=== PATIENT | male | born 1995 | race Two or more races ===

== ENCOUNTER 2017-06-21 17:38 | Emergency (ER) | payer BC, OTHER ==
[~2017-06-21] VITALS: Ht 154.9 cm; Wt 57.7 kg
[~2017-06-21 17:38] MED LIST: ACTIGALL PO; DAYTRANA1 EAC1 TD; KEFLEX250 MG/5 M PO; RAPAMUNE1 MG/1 ML PO
[2017-06-21 19:47] LABS: BILIRUBIN NEGATIVE; BLOOD LARGE; COLOR YELLOW ((YELLOW)); GLUCOSE (STRIP) 50; KETONES NEGATIVE; LEUKOCYTES NEGATIVE; NITRITE NEGATIVE; PROTEIN (STRIP) 30; SPECIFIC GRAVITY 1.008 (1.000-1.030); UROBILINOGEN 0.2 MG/DL (0.2-1.0)
[2017-06-21 19:51] LABS: APPEARANCE SL CLOUDY ((CLEAR))
[2017-06-21 19:56] LABS: BACTERIA 1+ /HPF; EPITHELIAL CELLS NONE SEEN /HPF; MUCUS NONE SEEN /LPF; RED BLOOD CELLS 15-20 /HPF (0-5); UCUL ADDED? YES
[2017-06-21 21:23] LABS: BASOPHIL (%) 0.3 % (0-1); EOSINOPHIL (%) 1.9 % (0-5); EOSINOPHIL COUNT 0.2 K/uL (0-0.3); HEMATOCRIT 47.4 % (38.0-50.0); HEMOGLOBIN 17.1 G/DL (12.5-16.6); IMMATURE GRANULOCYTE (%) 0.1 % (0.0-0.7); LYMPHOCYTE (%) 21.8 % (15-42); LYMPHOCYTE COUNT 2.1 K/uL (1.0-2.8); MCHC 36.1 G/DL (30.0-36.0); MCV 83.2 FL (86-99); MONOCYTE (%) 19.6 % (3-12); MONOCYTE COUNT 1.9 K/uL (0-0.8); NEUTROPHIL (%) 56.3 % (45-76); NEUTROPHIL COUNT 5.3 K/uL (1.8-6.4); PLATELET COUNT 141 K/uL (156-360); RBC DIS.WIDTH-CV 12.7 % (11.8-14.6); RBC DIS.WIDTH-SD 38.1 % (39-53); WHITE BLOOD COUNT 9.4 K/uL (4.1-10.2)
[2017-06-21 21:28] LABS: INTER. NORMALIZED RATIO 1.1
[2017-06-21 21:31] LABS: PTT 28.9 SEC (25-37)
[2017-06-21 21:45] LABS: ALBUMIN 4.3 G/DL (3.2-4.8); CHLORIDE 97 MEQ/L (99-109); POTASSIUM 3.4 MEQ/L (3.7-5.4); SODIUM 136 MEQ/L (136-147)
[2017-06-21 21:50] LABS: ALKALINE PHOSPHATASE 267 IU/L (3-129); ALT (GPT) 63 IU/L (3-49); AST (GOT) 42 IU/L (2-34); CREATININE 0.8 MG/DL (0.6-1.3); GFR ESTIMATE (CALCULATED) > 59 mL/min/ (58.99-99999); GLUCOSE 117 mg/dL (70-99); LIPASE 24 U/L (1.0-51.0); TOTAL PROTEIN 8.2 G/DL (6.4-8.3); UREA NITROGEN (BUN) 15 mg/dL (9-23)
[2017-06-22] MEDS ORDERED: CEFPODOXIME PR200 MG PO (00:16)
[2017-06-22 00:37] VITALS: BP 125/74
== END 2017-06-22 00:37 | disposition home or self-care (01) ==
LOC: EME 17:38
PROVIDERS: Emergency Medicine
DX: N39.0 Urinary tract infection, site not specified (principal); R50.9 Fever, unspecified; N28.1 Cyst of kidney, acquired; N20.1 Calculus of ureter; Z94.4 Liver transplant status; Z85.858 Personal history of malignant neoplasm of other endocrine glands; Z87.442 Personal history of urinary calculi; Z88.0 Allergy status to penicillin; Z93.1 Gastrostomy status
CPT/HCPCS: 71046; 74177; 80053; 81003; 83690; 85025; 85610; 85730; 87040; 87086; 99281; 99285; J0696; J7030